=== PATIENT | male | born 1945 | race Caucasian/White ===

== ENCOUNTER 2021-05-01 09:17 | Emergency (ER) | payer MEDICARE, OTHER ==
--- NOTE | 2021-05-01 10:47 | EDM.PDOC ---
ED HPI GENERAL MEDICAL PROBLEM - General Chief Complaint: Neurological Problem Stated Complaint: SYMPTOMS OF A STROKE Time Seen by Provider: 05/01/21 09:30 Source of Information: Reports: Patient, Family History Limitations: Reports: No Limitations - History of Present Illness INITIAL COMMENTS - FREE TEXT/NARRATIVE: 75-year-old male woke up this morning at 5 AM and went to the bathroom and felt fine, went back to bed. When he woke at 8 he felt off centered, some numbness in his left face and mild weakness in his left arm. When he got up to walk he felt "off centered" and had some slight difficulty walking. His family thought he sounded somewhat dysarthric so brought him in to be seen. It is now up to 5 hours since his symptoms possibly started, last known well was 5 AM. He still has some minimal numbness on the left side of his face, a very subtle lack of coordination to the left arm but symptoms are almost resolved. He had no headache, no palpitations, no shortness of breath or chest pain, denies nausea or vomiting or recent illness. He is a type II diabetic that is well controlled, has not had any type of TIA or stroke symptoms in the past. Onset: Unknown/Unsure (Sometime after 5 AM) Improves with: Reports: Other (Seems to be improving with time) Worsens with: Reports: None Associated Symptoms: Reports: Weakness (Questionable weakness of the left face and left arm). Denies: Confusion, Chest Pain, Cough, Diaphoresis, Fever/Chills, Headaches, Nausea/Vomiting, Shortness of Breath - Related Data Allergies Allergy/AdvReac Type Severity Reaction Status Date / Time No Known Allergies Allergy Verified 05/01/21 09:24 Home Meds: Home Meds Metoprolol Succinate [Toprol XL] 10 mg PO DAILY 05/01/21 [History] Mv-Mn/Iron/Folic Acid/Herb 190 [Vitamin D3 Complete Caplet] 1 tab PO DAILY 05/01/21 [History] metFORMIN [Glucophage XR] 1,000 mg PO BID 05/01/21 [History] Past Medical History HEENT History: Reports: Impaired Vision Cardiovascular History: Reports: Hypertension Musculoskeletal History: Reports: Back Pain, Chronic Endocrine/Metabolic History: Reports: Diabetes, Type II Oncologic (Cancer) History: Reports: Prostate - Infectious Disease History Infectious Disease History: Reports: Chicken Pox, Influenza, Measles, Mumps - Past Surgical History Head Surgeries/Procedures: Reports: None HEENT Surgical History: Reports: Tonsillectomy Cardiovascular Surgical History: Reports: None Endocrine Surgical History: Reports: None Musculoskeletal Surgical History: Reports: None Oncologic Surgical History: Reports: None Dermatological Surgical History: Reports: None Social & Family History - Tobacco Use Tobacco Use Status *Q: Never Tobacco User Second Hand Smoke Exposure: No - Caffeine Use Caffeine Use: Reports: Soda - Recreational Drug Use Recreational Drug Use: No ED ROS GENERAL - Review of Systems Review Of Systems: See Below Constitutional: Denies: Fever, Chills, Malaise HEENT: Denies: Vision Change Respiratory: Denies: Shortness of Breath Cardiovascular: Denies: Chest Pain GI/Abdominal: Denies: Abdominal Pain, Nausea, Vomiting : Reports: No Symptoms Musculoskeletal: Reports: No Symptoms. Denies: Muscle Pain Skin: Reports: No Symptoms Neurological: Reports: Difficulty Walking, Weakness, Gait Disturbance, Other (Slight dysarthria which seems to be improving). Denies: Confusion, Dizziness, Headache Psychiatric: Reports: No Symptoms ED EXAM, NEURO - Physical Exam Exam: See Below Exam Limited By: No Limitations General Appearance: Alert, No Apparent Distress Eye Exam: Bilateral Eye: EOMI, Normal Inspection, Other (Visual armstrong intact) Throat/Mouth: Other (Facial muscles are symmetric) Head Exam: Atraumatic, Normocephalic Neck: Supple, Non-Tender. No: Carotid Bruit, Lymphadenopathy (R), Lymphadenopathy (L) Respiratory/Chest: Lungs Clear, No Accessory Muscle Use Cardiovascular: Regular Rate, Rhythm, No Murmur. No: Extra Beats GI/Abdominal: Soft, Non-Tender Neurological: Alert, Other (Very slight grasp strength weakness on the left side and subjective paresthesias on the left side of the face) Extremities: No: Pedal Edema Psychiatric: Normal Affect, Normal Mood Skin Exam: Warm, Dry Course - Vital Signs Last Recorded V/S: Last Vital Signs Temp 96.8 F L 05/01/21 09:30 Pulse 72 05/01/21 11:53 Resp 12 05/01/21 09:53 BP 122/63 05/01/21 11:53 Pulse Ox 97 05/01/21 11:53 - Orders/Labs/Meds Meds: Medications Discontinued Medications Generic Name Dose Route Start Last Admin Trade Name Freq PRN Reason Stop Dose Admin Apixaban 5 mg 05/01/21 11:11 05/01/21 11:21 Apixaban 5 Mg Tab PO 05/01/21 11:12 5 mg ONETIME ONE Administration Aspirin 325 mg 05/01/21 11:11 05/01/21 11:21 Aspirin 325 Mg Tab.Ec PO 05/01/21 11:12 325 mg ONETIME ONE Administration - Re-Assessments/Exams Free Text/Narrative Re-Assessment/Exam: 05/01/21 10:54 An MRI opening on the schedule was available, so patient was sent back for a brain MRI. Result is pending. 05/01/21 11:48 MRI did show a likely small ischemic area in the right thalamus. Patient's symptoms continue to improve but did not completely resolve. He was given 1 full dose aspirin and 5 mg of Eliquis, and elected to follow-up when he gets home 05/01/21 13:46 Cardiac monitoring showed normal sinus rhythm throughout his ER stay Departure - Departure Time of Disposition: 12:07 Disposition: Home, Self-Care 01 Clinical Impression: Right thalamic stroke - Discharge Information Instructions: Supporting Someone After a Stroke Referrals: PCP,None [Primary Care Provider] - Forms: ED Department Discharge Care Plan Goals: Take 1 full dose aspirin daily, and take 1 Eliquis as prescribed daily until you have been rechecked when you get home. Activity and diet as tolerated, return to the hospital if symptoms worsen significantly or rapidly. Sepsis Event Note (ED) - Focused Exam Vital Signs: Vital Signs Temp Pulse Resp BP Pulse Ox 05/01/21 11:53 72 122/63 97 05/01/21 11:24 74 125/54 L 97 05/01/21 10:53 67 134/68 95 05/01/21 09:53 70 12 139/65 97 05/01/21 09:30 96.8 F L 79 15 154/74 H 97 05/01/21 09:23 96.8 F L 79 15 154/74 H 97
[2021-05-01] MEDS ORDERED: Apixaban 5 MG Tab PO ONE (11:11)
[2021-05-01] MEDS ORDERED: Aspirin 325 MG Tab.EC PO ONE (11:11)
--- NOTE | 2021-05-01 11:15 | MR ---
Brain wo Cont CLINICAL HISTORY: Left arm weakness, acute onset COMPARISON: None TECHNIQUE: Multiple axial, sagittal, and coronal images were obtained on a 1.5 T magnet with multiweighted sequences, FLAIR, and diffusion imaging without contrast. FINDINGS: There is a small focus of restricted diffusion in the right basal ganglia/thalamic region and the posterior limb of the internal capsule. There is a punctate focus of encephalomalacia in the left basal ganglia adjacent to the head of the caudate nucleus. There are scattered T2 hyperintensities in the periventricular and subcortical white matter. There is no focal mass lesion. There is no hemmorhage or extraaxial collection. The basal cisterns and sulci over the convexities are normal. The ventricles are normal for age. IMPRESSION: Small focus of restricted diffusion in the right basal ganglia/thalami region near the posterior limb of the internal capsule. Considering the patient's clinical presentation this is suspect for small acute ischemic infarct. There is no evidence to suggest hemorrhage. Small focus of cephalization in the left basal ganglia is likely from a remote lacunar type infarct Chronic ischemic microvascular changes
== END 2021-05-01 12:08 | disposition home or self-care (01) ==
LOC: JP.ED 09:17
DX: I63.9 Cerebral infarction, unspecified (principal); E11.9 Type 2 diabetes mellitus without complications; I10 Essential (primary) hypertension; Z79.84 Long term (current) use of oral hypoglycemic drugs
CPT/HCPCS: 70551; 99285; A9270